=== PATIENT | male | born 1950 | race Caucasian/White ===

== ENCOUNTER → 2017-12-26 10:06 | Outpatient (CLI) | payer MEDICARE, OTHER, SELFPAY ==
--- NOTE | 2017-12-26 | DI.RAD.S_ITS ---
PROCEDURE: FL JOINT INJECTION LARGE LT INDICATIONS: Unspecified osteoarthritis, unspecified site TECHNIQUE: The indications, alternatives, benefits, risks, and complications of the procedure were explained to the patient. Written informed consent was obtained and placed in the chart. The patient was placed in an appropriate position on the fluoroscopy table, and a site was chosen for percutaneous access under fluoroscopic guidance. The site was prepped and draped in a sterile fashion. Local anesthetic was administered using a 1% lidocaine solution. A hypodermic or spinal needle was then used to access the symptomatic joint. Intra-articular location of the needle tip was confirmed by injecting a small amount of contrast, followed by steroid administration. The needle was then withdrawn, and a bandage applied to the puncture site. FINDINGS: Joint injected: Left hip Medications injected: 4 mL of 40 mg/mL Kenalog (1 cc) and 0.5% Ropivacaine (3 CC) mixture. Patient's pain before injection: 4 out of 10. Patient's pain after injection: 0 out of 10. Complications: None. IMPRESSION: Successful fluoroscopically guided administration of steroid and anaesthetic solution into the left hip joint. Dictated by: Gume Richter M.D. on 12/31/2017 at 8:22 Approved by: Gume Richter M.D. on 12/31/2017 at 8:41
== END ==
PROVIDERS: Visit Provider Orthopaedic Surgery Sports Medicine
DX: M19.90 Unspecified osteoarthritis, unspecified site (principal); M25.552 Pain in left hip
CPT/HCPCS: 20610; 23350; 77002

== ENCOUNTER → 2018-01-12 13:18 | Outpatient (CLI) | payer MEDICARE, OTHER, SELFPAY ==
--- NOTE | 2018-01-12 | DI.MRI.S_ITS ---
PROCEDURE: MR HIP LT WO CON INDICATIONS: UNILATERAL PRIMARY OSTEOARTHRITIS TECHNIQUE: Noncontrast coronal T1 spin echo and STIR through the bony pelvis. Coronal and axial T2 fast spin echo with fat saturation, sagittal T1 spin echo, and oblique axial T2 fast spin echo with fat saturation through the hip. COMPARISON: None. FINDINGS: Image quality: Excellent. Bones and joints: There is marrow edema involving weight-bearing portion of superior left acetabulum. Moderate osteoarthritic changes are noted in left hip joint with joint space narrowing, and prominent marginal osteophyte formation. No discrete fracture line. No evidence of avascular necrosis. Mild edema within left femoral neck is also seen with no discrete fracture line. Mild osteophytic changes also noted in right hip joint with no fracture or dislocation. No evidence of avascular necrosis. The visualized lower lumbar spine appears normally aligned. Tendons and ligaments: The gluteus medius and minimus tendons appear intact, without associated muscle atrophy. The nearby proximal iliotibial band also appears intact. The iliopsoas tendon appears intact, without adjacent bursal fluid collections or evidence for impingement syndrome. The origin of the hamstring tendon is intact at the ischial tuberosity, as well as the associated sacrotuberous ligament. The straight and reflected heads of the rectus femoris muscle origin appear intact, as well as the conjoint tendon. The ligamentum teres appears intact where visualized. Labrum and cartilage: Small to moderate amount of joint effusion is noted in left hip joint. No definite loose body is seen. There is signal abnormality and contour irregularity seen involving superior anterior labrum suggestive of superior anterior left hip labral tear. The alpha angle of the femur is within normal limits at less than 55 degrees. Soft tissues: There is edema involving left obturator externus muscle and adductor darrell muscle suggestive of muscle strain/low-grade intrasubstance partial thickness tear. No full-thickness muscle rupture. Quadratus femoris muscle demonstrates no internal edema to suggest ischiofemoral impingement. The proximal sciatic neurovascular bundle appears normal adjacent to the hamstring tendons. No free pelvic fluid. Bladder wall thickness is normal. Genitourinary structures and bowel loops appear normal where visualized. IMPRESSION: 1. Moderate left hip joint osteoarthritis with joint space narrowing, subchondral sclerosis and marginal osteophyte formation. No fracture or dislocation. No evidence of avascular necrosis. Mild right hip joint osteoarthritis. 2. Small to moderate amount of joint fluid, no gross loose body. 3. Suggestion of superior anterior left hip labral tear. 4. Low-grade muscle strain/partial thickness tear involving left obturator externus muscle and left adductor darrell muscle. Dictated by: Kaiser Shah M.D. on 01/14/2018 at 10:28 Approved by: Kaiser Shah M.D. on 01/14/2018 at 11:31
== END ==
PROVIDERS: PCP Family Medicine; Visit Provider Orthopaedic Surgery
DX: M81.0 Age-related osteoporosis without current pathological fracture (principal)
CPT/HCPCS: 73721

== ENCOUNTER → 2019-12-29 09:46 | Outpatient (CLI) | payer MEDICARE, OTHER, SELFPAY ==
[2019-12-30 02:17] LABS: COVID19 Sendout Not Detected (Not Detect)
== END ==
PROVIDERS: PCP Family Medicine; Visit Provider Physician Assistant
DX: Z11.59 Encounter for screening for other viral diseases (principal)
CPT/HCPCS: 87635

== ENCOUNTER 2020-01-01 08:14 | Day surgery (SDC) | payer MEDICARE, OTHER, SELFPAY ==
[2019-12-29 15:06] VITALS: BMI 30.1
[2020-01-01] VITALS (8 sets, daily range): BP systolic 113–153; BP diastolic 65–84; PULSE 63–67; RESP 11–20; TEMP 36.3–36.6; O2SAT 95–98; BMI 30.1
--- NOTE | 2020-01-01 | PATH_ITS ---
[facility] Accession Number: [id number] . 01 Material submitted: . PART A: nasal cavity - RIGHT NASAL POLYP PART B: nasal cavity - LEFT NASAL POLYP . 01 Diagnosis: A. Nasal Tissue, Right, Excision: Polypoid fragment of inflamed and edematous sinonasal mucosa, consistent with sinonasal polyp. Negative for malignancy. . B. Nasal Tissue, Left, Excisions: Polypoid fragment of inflamed and edematous sinonasal mucosa with increased eosinophils, consistent with sinonasal polyp. Negative for malignancy. MRV 01/05/2020 1358 Local . 01 Electronically signed: . Harshal Mari MD, Dermatopathologist NPI- [id number] . 01 Gross description: . A. Received in formalin, labeled right nasal polyp, and consists of a 3.5 x 2.0 x 1.8 cm bearden glistening polypoid tissue fragment. The margin is inked blue. The specimen is serially sectioned to reveal bearden glistening cut surfaces. The specimen is entirely submitted in cassettes A1-A5. B. Received in formalin, labeled left nasal polyp, and consists of two bearden glistening fragments of soft tissue measuring 1.2 x 0.5 x 0.4 cm and 1.5 x 1.0 x 0.5 cm. The margins are inked blue. The specimen is entirely submitted. . B1: smaller tissue fragment, bisected. B2: larger tissue fragment, quadrisected. (EA:[id number]) /MRV 01/02/2020 1243 Local . 01 Pathologist provided ICD-10: J33.9 . 01 CPT . 637013, [id number] Performed at: 01 [facility] [address] [place] [address] [address], [place], [place] [id number] MD Gaudencio Simon MD Phone: [phone]
[2020-01-01] MEDS: LACTATED RINGERS 1,000 ML 42 ML IV ×2 (08:48→12:33)
--- NOTE | 2020-01-01 09:57 | PM.PREOP ---
Pre-operative Note COVID-19 COVID-19 status: Negative Result date/Date tested (Pos, Neg/Pending): 12/29/19 Interval Note History & Physical reviewed/Exam performed by Physician: Yes Changes to H&P: No
[2020-01-01] MEDS: CLINDAMYCIN 600 MG/50 ML PIGGYBACK 100 MG IV (10:21)
--- NOTE | 2020-01-01 10:50 | SUR.OPER ---
Supine on padded OR bed, head on pillow,right arm padded and tucked at side, left arm on padded armboard at less than 90 degrees abduction legs uncrossed, safety belt at thigh, tape over blanket over lower legs .
[2020-01-01] MEDS: OXYMETAZOLINE NASAL SPRAY 15 ML 2 SPRAYS NASAL (11:03)
[2020-01-01] MEDS: LIDOCAINE 1% W/EPI 1 ML SUBCUT (11:05)
[2020-01-01] MEDS: LIDOCAINE 4% SOLN 50 ML 20 ML TOP (11:06)
--- NOTE | 2020-01-01 13:06 | PM.OP.1 ---
Operative Date/Time/Diagnoses Date of procedure: 01/01/20 Time of procedure: 12:50 Pre-op diagnosis: Chronic rhinosinusitis with nasal polyposis, nasal airway obstruction Post-op diagnosis: same Procedure & Clinicians Procedure: 1. Bilateral endoscopic maxillary antrostomy with tissue removal 2. Bilateral total ethmoidectomies 3. Left endoscopic sphenoidotomy Same procedure as scheduled: Yes Indications: 69-year-old male with the above diagnoses, incompletely managed with medical therapy presents for the above procedures. Following discussion of the material risks benefits complications and alternatives, he elected to proceed. Surgeon: Addi Huggins Click Yes if Unassisted: Yes Anesthesia Type: General and Local Operative Notes Findings: Several cm right olfactory cleft polyp, lateralized right diminutive middle turbinate, resected. Right maxillary entirely filled with peanut butter consistency debris, completely cleared with instrumentation and irrigation. Smaller polyps left middle meatus and within left maxillary sinus. Polypoid mucosa bilateral ethmoids with inflammation. Left sphenoidotomy performed, not right. Specimen sent to pathology bilaterally, culture of debris right maxillary sinus. FloSeal instilled bilaterally at completion. Closure Type: not applicable Specimen(s): other Estimated Blood Loss (mL): 300 Procedure in detail: Following identification and confirmation of consent, the patient was brought to the operating room suite and placed in the supine position. General endotracheal anesthesia was administered. Cotton with 4% lidocaine and Afrin on pledgets was placed into the nose bilaterally for several minutes. Following sterile prep and drape, the packing was removed and under endoscopic guidance I infiltrated the posterior and anterior superior insertion of the left middle turbinate. The middle turbinate was slightly medialized and the backbiting forceps performed uncinectomy along with the microdebrider. Polyps were resected and sent as a specimen. Maxillary antrostomy was created by extending the natural os posteriorly and inferiorly and additional polyp was resected from within the maxillary sinus with curved forceps and the microdebrider. The ethmoid bulla was resected with the microdebrider. I penetrated the basal lamella inferiorly and medially to enter the posterior ethmoids and trimmed the inferior half of the superior turbinate. The natural os of the sphenoid sinus was identified and enlarged inferiorly with the mushroom punch as well as a microdebrider. Posterior to anterior ethmoid dissection was performed with the J curette and forceps although the frontal recess was not approached. Hemostasis with Afrin and lidocaine on cotton was performed, eventually some suction electrocautery. On the right side I could inject the posterior insertion of the middle turbinate but not superiorly due to the very large polyp. The polyp was resected nearly completely in 1 piece with through cutting forceps and was emanating from the olfactory cleft. Suction electrocautery on a setting of 10 was used for hemostasis. The middle turbinate was diminutive and lateralized and was resected, with cautery of the residual stump posteriorly. The uncinate process was lateralized and uncinectomy was performed with backbiting forceps. The natural os of the maxillary sinus was already significantly dilated but was further enlarged with the microdebrider. The entire sinus was filled with thick inspissated peanut butter consistency debris which over a few 100 cc irrigations eventually was cleared with the forceps and suction. The ethmoid bulla was polypoid but was further resected. I penetrated the basal lamella to enter the posterior ethmoids and did NOT perform sphenoidotomy on this side. Posterior to anterior dissection was performed bluntly although it was narrow on this side. The frontal recess was not approached. Temporary packing was placed on both sides and upon removal further suction cautery was performed to improve hemostasis. At completion FloSeal was placed along the skull base bilaterally to further improve hemostasis which was adequate at completion. sponge counts were correct and he was extubated in the operating room and taken to recovery room in stable condition without complication. Postoperative care: CC postop orders. The patient's was informed of the surgical findings. Complications: none Post-operative Condition: stable Disposition: same day surgery Plan for aftercare: Nasal saline every hour while awake, begin irrigations t.i.d. tomorrow, 2 of the 3 with budesonide. Follow-up as scheduled in 1 week. Patient and his agree with the plan, understand, and are appreciated.
[2020-01-01] MEDS: OXYCODONE/ACETAMINOPHEN 5/325 TABLET 1 TAB PO ×2 (13:07→13:34)
[2020-01-01] MEDS: ONDANSETRON 4 MG/2 ML INJ IV (14:00)
== END 2020-01-01 14:35 | disposition home or self-care (01) ==
PROVIDERS: PCP Family Medicine; Referring Provider Family Medicine; Visit Provider Otolaryngology
PROC: (CPT 31231; principal; 2020-01-01 09:45)
DX: J34.89 Other specified disorders of nose and nasal sinuses (principal); J32.4 Chronic pansinusitis; J33.8 Other polyp of sinus
CPT/HCPCS: 31255; 31267; 31287; 87070; 87075; 87077; 87185; 87186; 87205; A9270; J1100; J2250; J2405; J2704; J3010

== ENCOUNTER → 2021-10-03 15:40 | Outpatient (CLI) | payer MEDICARE, OTHER, SELFPAY ==
--- NOTE | 2021-10-03 15:43 | DI.ECHO.S_ITS ---
[facility]---------+ [facility] +---------+ : : [address] : : : : [id number] : : : : Phone: [phone]+ Echocardiogram Report + + :Name: GAYLE FRANCO Study Date: 10/03/2021 Height: 70 in : :[facility] ReadingLocation: Weight: 200 lb : : Gender: Male BSA: 2.1 m2 : :: 1950 Age: 71 yrs BP: 133/73 mmHg: :Reason For Study: CABG : :Ordering Physician: NAZARIO, : :SANAZ Performed By: Harshal Mccord : :Referring: SANAZ LANGE : + + Interpretation Summary The left ventricle is normal in size and wall thickness. The ejection fraction is estimated to be 55-60%. The right ventricle is normal in size and function. There is mild mitral regurgitation. The IVC is of normal diameter and collapses greater than 50% with a sniff. This suggests a low right atrial pressure of 3 mm Hg. Procedure: A two-dimensional transthoracic echocardiogram with color flow and Doppler was performed. The study quality was technically adequate. There is no prior echocardiogram noted for this patient. The patient was in normal sinus rhythm during the exam. Left Ventricle: The left ventricle is normal in size and wall thickness. There is no thrombus. Left ventricular systolic function is normal. The ejection fraction is estimated to be 55-60%. There are no focal wall motion abnormalities. MV E/A: 1.3 Med Peak E' Jeremy: 7.3 cm/sec E/E' med: 11.6. Right Ventricle: The right ventricle is normal in size and function. Atria: The left atrium is mildly dilated. Right atrial size is normal. The interatrial septum grossly appears intact with no obvious evidence for an atrial septal defect. Mitral Valve: There is mild mitral annular calcification. There is mild mitral regurgitation. Aortic Valve: The aortic valve is trileaflet. There is mild aortic valve sclerosis. There is no aortic valve stenosis. No aortic regurgitation is present. Tricuspid Valve: The tricuspid valve is normal in structure and function. Pulmonary artery pressures cannot be estimated because of the lack of a measurable TR jet velocity. There is trace tricuspid regurgitation. Pulmonic Valve: The pulmonic valve is normal in structure and function. There is a trace or physiologic amount of pulmonic regurgitation. Great Vessels: The aortic root is normal size. The dimensions of the ascending aorta are normal. The IVC is of normal diameter and collapses greater than 50% with a sniff. This suggests a low right atrial pressure of 3 mm Hg. Pericardium/ Pleura There is no pericardial effusion. There is no pleural effusion. MMode/2D Measurements & Calculations LVIDd: 4.8 cm LVOT diam: 2.6 cm LVIDs: 3.2 cm Ao root diam: 3.9 cm FS: 33.3 % asc Aorta Diam: 3.5 cm IVSd: 1.1 cm LVPWd: 1.0 cm LV arteaga. diameter/BSA (cm/m^2): 2.3 LV sys. diameter/BSA (cm/m^2): 1.5 LA dimension: 3.7 cm RA long axis: 5.2 cm LA A2 area: 21.8 cm2 LA A4 area: 23.6 cm2 LA length (vol): 5.6 cm LA vol: 78.7 ml LA vol index: 37.7 ml/m2 TAPSE_phl: 2.0 cm Doppler Measurements & Calculations Ao V2 max: 100.0 cm/sec LVOT Max Jeremy: 91.4 cm/sec Ao V2 mean: 74.1 cm/sec LV V1 max P.3 mmHg Ao max P.0 mmHg LV V1 VTI: 19.5 cm Ao mean P.0 mmHg EMILEE(I,D): 5.3 cm2 Ao V2 VTI: 19.6 cm EMILEE(V,D): 4.9 cm2 sev ratio: 0.99 EMILEE indexed to BSA (cm^2/m^2): 2.5 MV E max jeremy: 84.4 cm/sec SV(LVOT): 103.5 ml MV A max jeremy: 65.6 cm/sec MV E/A: 1.3 Med Peak E' Jeremy: 7.3 cm/sec E/E' med: 11.6 Lat Peak E' Jeremy: 12.2 cm/sec E/E' lat: 6.9 E/e' average: 9.3 MV dec time: 0.30 sec AV VR_phl: 0.91 LENI P1/2t-pr_phl: 88.0 msec EMILEE(VTI)/BSA_phl: 2.5 Reading Physician:10:07 AM
== END ==
PROVIDERS: PCP Physician Assistant Medical; Referring Provider Internal Medicine Cardiovascular Disease; Visit Provider Internal Medicine Cardiovascular Disease
DX: I10 Essential (primary) hypertension (principal); Z95.1 Presence of aortocoronary bypass graft; I08.0 Rheumatic disorders of both mitral and aortic valves
CPT/HCPCS: 93306

== ENCOUNTER → 2023-01-22 09:39 | Outpatient (CLI) | payer MEDICARE, OTHER, SELFPAY ==
--- NOTE | 2023-01-22 | DI.NM.S_ITS ---
PROCEDURE: NM WES PERF SPECT R&S PHARM Rest and pharmacological stress myocardial perfusion SPECT with gated imaging and ejection fraction RADIOPHARMACEUTICAL: 11.8 mCi Tc-99m tetrafosmin IV at rest and 25.4 mCi Tc-99m tetrafosmin IV at peak effect of pharmacological stress. A [id number] was performed. INDICATIONS: Other chest pain TECHNIQUE: Radiopharmaceutical was injected at peak stress test, and also at rest. SPECT images were obtained. SPECT myocardial perfusion images were displayed in short axis, horizontal long axis, and vertical long axis views. Gated images were reviewed using Formisimo software. COMPARISON: None. CARDIAC STRESS: A pharmacologic stress test was performed under the supervision of an attending staff, using an infusion of regadenoson 0.4 mg IV. Hemodynamic data: There is normal blood pressure and heart rate response to pharmacologic stress. Symptoms: The patient denied anginal chest pain. EKG: No diagnostic changes of ischemia; no ectopy. FINDINGS: Raw data: There is good myocardial uptake of radiotracer. No significant motion artifacts. Aanh-gu-udbgq ratio is 0.38 (normal is less than 0.38 for tetrafosmin tracer). Left ventricle function: Gated images demonstrate basal inferolateral hypokinesis. No segmental wall motion abnormalities. No transient ischemic dilation; TID is 1.04 (normal less than 1.3). Left ventricle resting end diastolic volume is 128 mL. Left ventricle stress ejection fraction is 62%; normal range is above 45%. Myocardial perfusion: There is a medium size, moderate to severe intensity fixed basal to mid inferolateral wall defect with an adjacent reversible perfusion defect in the basal to mid lateral and anterolateral almendarez. IMPRESSION: Abnormal study. The fixed basal to mid inferolateral wall defect occurs in the setting of hypokinesis of the segment and is consistent with scar however there is adjacent ischemia in the basal to mid lateral and anterolateral almendarez where wall motion is preserved. Rest LVEDV calculated at 128 mL. Normal LVEF. Dictated by: Gaviota Toledo D.O. on 01/22/2023 at 16:32 Approved by: Gaviota Toledo D.O. on 01/22/2023 at 16:44
== END ==
PROVIDERS: PCP Physician Assistant Medical; Referring Provider Internal Medicine Cardiovascular Disease; Visit Provider Internal Medicine Cardiovascular Disease
DX: R07.89 Other chest pain (principal); R94.39 Abnormal result of other cardiovascular function study; Z95.1 Presence of aortocoronary bypass graft
CPT/HCPCS: 78452; 93017; A9502; J2785

== ENCOUNTER 2023-01-24 09:49 | Emergency (ER) | payer MEDICARE, OTHER, SELFPAY ==
[2023-01-24 10:36] VITALS: BP 134/78; PULSE 69; RESP 14; TEMP 36.9; O2SAT 99; BMI 31.0
--- NOTE | 2023-01-24 10:44 | DI.RAD.S_ITS ---
PROCEDURE: XR KNEE RT 3V INDICATIONS: fall t-14, now increased pain right knee posterior and later TECHNIQUE: 3 views of the knee were acquired. COMPARISON: None. FINDINGS: Bones: No fractures or dislocations. No suspicious bony lesions. Tricompartmental joint space narrowing with associated osteophytosis. Soft tissues: No joint effusion. No suspicious soft tissue calcifications. Chondrocalcinosis. Surgical clip projects medial to the medial femoral condyle. IMPRESSION: No acute bony abnormality. Bukn-ed-vhobqhzz tricompartmental osteoarthritis. Kellgren-Horacio Grade 2. Chondrocalcinosis, which can be seen in the setting of CPPD, aging, and parathyroid disorders. Dictated by: Librado Alvarado M.D. on 01/24/2023 at 11:19 Approved by: Librado Alvarado M.D. on 01/24/2023 at 11:20
--- NOTE | 2023-01-24 11:24 | ED_ITS ---
HPI - Extremity Injury (Lower) <Irma Carr PA-C - Last Filed: 01/24/23 12:01> General Chief Complaint: Extremity Injury, Lower Stated Complaint: fell here apx3/4 weeks ago r knee still pain Time Seen by Provider: 01/24/23 09:51 Source: patient Mode of arrival: Ambulatory History of Present Illness HPI Narrative: 72-year-old male with history of osteoarthritis of the right hip, previous heart surgery (with right saphenous vein harvested) presents with concern for right knee pain on the lateral aspect of the knee in the back. Patient states that 4 weeks ago he was in [place] stepping out of the bed of his truck onto a milk crate and stepped incorrectly and slipped and twisted in the process. He states he did not have knee pain for about a week or 2 after this incident but he attributes his current knee pain to this incident. He says for the last 2 weeks his pain has been gradually increasing becoming almost unbearable he is had to start using the cane that he had from when he had a previous right ankle surgery. He describes the pain as a throbbing pain and it is worse with walking. He notes that he is scheduled to have his right hip replaced in February at [facility] with Dr. Scales. He has not had an increase in right hip pain recently. His right knee pain is worse with ambulation and worse for the 1st few steps but then improves. He denies numbness or tingling of the affected extremity, right-sided weakness, swelling of his right calf, calf pain, heat or redness in the area or any other injury in the last few weeks that might have contributed to his worsening pain. He states that he had some leftover hydrocodone from 5 years ago and in the past few weeks has taken a total of 3 tablets which he says did little to relieve his pain although he says they helped a lot more than ibuprofen. Also been taking ibuprofen and acetaminophen with limited relief. Related Data Home Medications Medication Instructions Recorded Confirmed simvastatin 20 mg tablet 20 mg PO BEDTIME 01/01/20 01/01/20 Previous Rx's Medication Instructions Recorded hydrocodone 5 mg-acetaminophen 325 1 tab PO Q8H PRN pain 3 days #12 01/24/23 mg tablet tabs Allergies Allergy/AdvReac Type Severity Reaction Status Date / Time Penicillins Allergy Anaphylaxis Verified 01/24/23 10:38 Review of Systems <Irma Carr PA-C - Last Filed: 01/24/23 12:01> Review of Systems Narrative: See HPI Patient History <Irma Carr PA-C - Last Filed: 01/24/23 12:01> Medical History Rhinorrhea URI (upper respiratory infection) Chronic pansinusitis Nasal polyposis Social History household members: spouse Smoking Status: Never smoker Smoking Status: Never smoker alcohol intake frequency: holidays/special occasions only Substance Use Type: does not use Exam <Irma Carr PA-C - Last Filed: 01/24/23 12:01> Narrative Exam Narrative: GENERAL: [72] year old patient appears stated age. Well-developed patient, in mild distress. HEAD: Atraumatic. Normocephalic. EYES: Pupils equal round and reactive. Extraocular motions intact. No scleral i cterus. No injection or drainage. ENT: Nose without bleeding, purulent drainage. NECK: Trachea midline. CARDIOVASCULAR: Regular rate and rhythm without murmurs, gallops, or rubs. RESPIRATORY: Clear to auscultation. Breath sounds equal bilaterally. No wheezes, rales, or rhonchi. GASTROINTESTINAL: Abdomen soft, non-tender, nondistended. EXTREMITIES: Bilateral calves/lower extremities are equal appearing in diameter. There is no pitting edema noted. There is no heat or erythema noted on the affected right extremity. The lateral aspect of the right knee is slightly tender to palpation posteriorly. No laxity with anterior-posterior drawer. No increased pain or laxity with varus and valgus stress. No edema or joint tenderness. Ambulates with cane on the right able to stand up without assistance and does not appear to be in significant pain. NEURO: AOx3. SKIN: No rash or erythema of visible areas Initial Vital Signs Initial Vital Signs: Vital Signs Temperature 98.4 F 01/24/23 10:36 Pulse Rate 69 01/24/23 10:36 Respiratory Rate 14 01/24/23 10:36 Blood Pressure 134/78 01/24/23 10:36 Pulse Oximetry 99 01/24/23 10:36 Oxygen Delivery Method Room Air 01/24/23 10:36 <Jessica Bloom MD - Last Filed: 01/24/23 13:02> Initial Vital Signs Initial Vital Signs: Vital Signs Temperature 98.4 F 01/24/23 10:36 Pulse Rate 69 01/24/23 10:36 Respiratory Rate 14 01/24/23 10:36 Blood Pressure 134/78 01/24/23 10:36 Pulse Oximetry 99 01/24/23 10:36 Oxygen Delivery Method Room Air 01/24/23 10:36 Course <Irma Carr PA-C - Last Filed: 01/24/23 12:01> Orders Ordered: ED Orders 01/24/23 10:44 XR knee RT 3V Stat Vital Signs Vital signs: Vital Signs - 8 hr 01/24/23 10:36 01/24/23 12:06 Temperature 98.4 F 98 F Pulse Rate 69 70 Respiratory Rate 14 18 Blood Pressure 134/78 140/79 Pulse Oximetry 99 99 Oxygen Delivery Method Room Air Room Air <Jessica Bloom MD - Last Filed: 01/24/23 13:02> Orders Ordered: ED Orders 01/24/23 10:44 XR knee RT 3V Stat Vital Signs Vital signs: Vital Signs - 8 hr 01/24/23 10:36 01/24/23 12:06 Temperature 98.4 F 98 F Pulse Rate 69 70 Respiratory Rate 14 18 Blood Pressure 134/78 140/79 Pulse Oximetry 99 99 Oxygen Delivery Method Room Air Room Air MDM - Extremity Injury (Lower) <Irma Carr PA-C - Last Filed: 01/24/23 12:01> Differential Diagnosis Differential diagnosis: Likely acute internal derangement of knee and other (Tricompartmental osteoarthritis, chondrocalcinosis) Lab Data Attestation: I reviewed the patient's lab results. Imaging Data Extremity x-ray #1: My Impression: Agree With radiology interpretation Radiologist's Impression: [address] [address] XRay Report Signed Patient: Vadim Guardado MR#: [id number] : 1950 Acct:[id number] Age/Sex: 72 / M Date of Service: 01/24/23 Loc: ED Accession Number: [id number] Procedure: XR knee RT 3V Ordering Provider: Jessica Bloom MD PROCEDURE: XR KNEE RT 3V INDICATIONS: fall t-14, now increased pain right knee posterior and later TECHNIQUE: 3 views of the knee were acquired. COMPARISON: None. FINDINGS: Bones: No fractures or dislocations. No suspicious bony lesions. Tricompartmental joint space narrowing with associated osteophytosis. Soft tissues: No joint effusion. No suspicious soft tissue calcifications. Chondrocalcinosis. Surgical clip projects medial to the medial femoral condyle. IMPRESSION: No acute bony abnormality. [id number] tricompartmental osteoarthritis. Kellgren-Horacio Grade 2. Chondrocalcinosis, which can be seen in the setting of CPPD, aging, and parathyroid disorders. Dictated by: Librado Alvarado M.D. on 01/24/2023 at 11:19 Approved by: Librado Alvarado M.D. on 01/24/2023 at 11:20 Treatment and disposition Shared decision making:: Shared decision-making was used in determining plan for patient's care and outpatient follow-up. [facility] Narrative Medical decision making narrative: This is a generally well-appearing 72-year-old male with a history of open heart surgery, right hip osteoarthritis with plan for right hip replacement February of 2023 presents with concern for right knee pain worsening in the past month particularly last 2 weeks after he sustained a twisting injury 4 weeks prior. Exam is nonspecific although he does have tenderness of the lateral posterior right knee. His pain is worse with ambulation and suspect his osteoarthritis of the knee could also be compounded by his right hip osteoarthritis. Right knee x-ray today returned showing tricompartmental osteoarthritis as well as chondrocalcinosis. Encouraged the patient to follow up closely with his orthopedic surgeon at [facility] and discuss his right knee pain with him he states that he has a preop visit coming up soon and plans to do so at this visit. Counseled him regarding return precautions. Discussed options for pain control and patient prescribe a short course of hydrocodone to be used only as needed for severe pain. He is encouraged to stay off of his leg as much as is reasonable as his pain is mostly present with ambulation. All questions answered. Discharge Plan Departure Patient Disposition: Home Clinical Impression: Acute knee pain, Osteoarthritis, Chondrocalcinosis Instructions: DI for Knee Pain Activity Restrictions/Additional Instructions: *You have been diagnosed with [chondrocalcinosis and tricompartmental osteoarthritis of your right knee] *What to do: *Please continue to take your regular medications as directed. [1 ] New medication prescriptions sent to your pharmacy: [ Hydrocodone] [ ] New medication written as a paper prescription [ ] No new medications given *Please follow up with your primary care provider in 2-3 days, call for an appointment. Let them know you were seen in the Emergency Department and that we ask that you be seen in follow up. We will electronically transmit a record of today's note if your PCP is in our system. As we discussed I encourage you to follow-up with your orthopedic surgeon at [facility] Dr. Scales. As course if your symptoms are continuing to worsen or you develop new symptoms do not hesitate to seek re-evaluation sooner. I have included contact information for 1 of our orthopedic surgeons who practices here locally and at [facility] at your request however I think it is most reasonable for you to seek care with your orthopedic surgeon that is already planning to perform your right hip surgery in February. *If you do not have a primary care provider please contact the [facility] Resource line at [phone]. They will ask some questions about your medical history and help get you set up with a doctor in the community. *Return to Emergency Department if you should have any new, worsening or concerning symptoms, such as [fever greater than 101 F, shaking chills, worsening pain, persistent vomiting or other bothersome symptoms] Prescriptions: New hydrocodone-acetaminophen 5-325 mg tablet 1 tab PO Q8H PRN (Reason: pain) 3 Days Qty: 12 0RF No Action simvastatin 20 mg Tablet 20 mg PO BEDTIME Referrals: Jon Babb MD [Physician] - Marycruz Foreman PA-C [Primary Care Provider] - Stand Alone Forms: Patient Portal/API ED Sign-out <Jessica Bloom MD - Last Filed: 01/24/23 13:02> Cosign ED Attending Iris Attestation: I did not see this patient. I was available all times for consultation.
[2023-01-24 12:06] VITALS: BP 140/79; PULSE 70; RESP 18; TEMP 36.6; O2SAT 99
== END 2023-01-24 12:09 | disposition home or self-care (01) ==
PROVIDERS: Emergency Provider Student in an Organized Health Care Education/Training Program; PCP Physician Assistant Medical
DX: M25.561 Pain in right knee (principal); M17.12 Unilateral primary osteoarthritis, left knee; M11.262 Other chondrocalcinosis, left knee
CPT/HCPCS: 73562; 99281; 99283